=== PATIENT | female | born 1985 | race Caucasian/White ===

== ENCOUNTER 2022-03-23 16:52 | Emergency (ER) | payer OTHER ==
[~2022-03-23] VITALS: Ht 162.6 cm; Wt 75.0 kg
[2022-03-23] MEDS ORDERED: FAMOTIDINE 20MG TABLET PO ONE (18:15)
[2022-03-23] MEDS ORDERED: MAGNESIUM/ALUMINUM HYDROXIDE/SIMETHICONE 30ML UDC PO ONE (18:15)
[2022-03-23] MEDS ORDERED: ONDANSETRON 4MG ODT PO ONE (18:15)
[2022-03-23 19:30] VITALS: BP 122/78
[2022-03-23 19:57] LABS: CLARITY URINE CLOUDY (CLEAR); COLOR URINE YELLOW (YELLOW); KETONES URINE NEGATIVE (NEGATIVE); LEUKOCYTE ESTERASE URINE 1+ (NEGATIVE); NITRITE URINE NEGATIVE (NEGATIVE); OCCULT BLOOD URINE NEGATIVE (NEGATIVE); PH URINE 6.5 (4.5-8.0); PROTEIN URINE NEGATIVE (NEGATIVE); SPECIFIC GRAVITY URINE 1.016 (1.005-1.030); UROBILINOGEN URINE 0.2 E.U./dL (0.2-1.0)
== END 2022-03-23 19:30 ==
LOC: ER 16:52
DX: R10.13 Epigastric pain (principal)
CPT/HCPCS: 81003; 81025; 99284; Q0162